=== PATIENT | female | born 1990 | race Two or more races ===

== ENCOUNTER 2020-11-10 21:48 | Emergency (ER) | payer MEDICAID ==
[~2020-11-10] VITALS: Ht 165.1 cm; Wt 110.0 kg
--- NOTE | 2020-11-10 22:06 | PHYS DOC ---
General Adult HPI: HPI: ".. I having some contractions.. I feel like I want to push... I am 36 weeks. .. this is my 3rd ... the lst one was C section,... the second was twins and vaginal.. I ve been following at [facility] .. Dr. Posada... I was dilated to 1 cm earlier in the week.. my water has not broken..no blood yet.. but I am have contractions about every 5 min..." Patient is a 30 year old female who presents with contractions and 36 week . Pt. patient's first was a . Patient second was twins with vaginal delivery. Patient is following walk with at [facility] with this . Patient patient states she has been having contractions every 3 to 5 minutes.. Patient feels like she must push. Patient denies any bloody show. Patient denies any breakage of water. Patient denies any trauma. No recent travel. No history of fever or chills. No history of STDs. Patient states follow-up ultrasounds have showed no abnormality at [facility]. Patient exam currently shows no bleeding or breakage of water. Digital exam showed dilation to 2 cm. Not completely effaced. Forwardly earlier in the week she had dilated to 1 cm. Patient requesting transfer to [facility] if possible. Discussed patient's presentation, testing and treatment plan with Chidi Ferreria who is on-call advised to have patient come to [facility] OB Triage area. Patient recently evaluated at our facility on October 17 for pilonidal cyst/abscess. At that time she was discharged on clindamycin 300 mg 4 times a day and Percocet. Patient later changed to Keflex and Bactrim because of nausea with the clindamycin.. . No history of recent travel outside [facility]. No specific ill contacts. No history of STDs. Review of Systems: Review of Systems: Constitutional: Denies fever or chills Eyes: Denies change in visual acuity HENT: Denies nasal congestion or sore throat Respiratory: Denies cough or shortness of breath Cardiovascular: Denies chest pain or edema GI: Complains of abdomen contractions at 36 weeks : Denies dysuria Musculoskeletal: Denies back pain or joint pain Integument: Denies rash Neurologic: Denies headache, focal weakness or sensory changes Endocrine: Denies polyuria or polydipsia Lymphatic: Denies swollen glands Psychiatric: Denies depression or anxiety Family History: Family History: Noncontributory Current Medications: Current Meds: See nursing for home meds Allergies: Allergies: No known drug allergies Physical Exam: PE: Constitutional: moderate acute distress, non-toxic appearance. [] HENT: Normocephalic, atraumatic, bilateral external ears normal, oropharynx moist, no oral exudates, nose normal. [] Eyes: PERRLA, EOMI, conjunctiva normal, no discharge. [] Neck: Normal range of motion, no tenderness, supple, no stridor. [] Cardiovascular: Tachycardia heart rate regular rhythm, no murmur [] Lungs & Thorax: Bilateral breath sounds clear to auscultation [] breath sounds equal apex. Abdomen: Bowel sounds normal, soft, no tenderness, no masses, no pulsatile masses. Gravid. heart rate 150s. Movement. Exam with sterile glove, Cervix had dilated to approximately 2 cm. Not completely effaced. No bleed. No breakage of water. Cephalic presentation. Skin: Warm, dry, no erythema, no rash. [] Back: No tenderness, no CVA tenderness. [] Extremities: No tenderness, no cyanosis, no clubbing, ROM intact, no edema. [] Neurologic: Alert and oriented X 3, normal motor function, normal sensory function, no focal deficits noted. [] DTRs +2 patella and brachial. Psychologic: Affect anxious, judgement normal, mood normal. [] EKG: EKG: [] Radiology/Procedures: Radiology/Procedures: [] Heart Score: Risk Factors: Risk Factors: DM, Current or recent (<one month) smoker, HTN, HLP, family history of CAD, obesity. Risk Scores: Score 0 - 3: 2.5% MACE over next 6 weeks - Discharge Home Score 4 - 6: 20.3% MACE over next 6 weeks - Admit for Clinical Observation Score 7 - 10: 72.7% MACE over next 6 weeks - Early Invasive Strategies Course & Med Decision Making: Course & Med Decision Making Pertinent Labs and Imaging studies reviewed. (See chart for details) Discussed presentation, testing and treatment plan with Chidi Ferreira at [facility].- Advised no need for labs currently at our facility but have patient transferred to [facility]. Advised they would do labs after her arrival. Discussed risks of transfer and possibility of delivery in route to [facility]. Patient however request to be transferred to [facility] Impression. 1. Abdomen contractions at 36 weeks. 2. Possible premature labor [] Dragon Disclaimer: Dragon Disclaimer: This electronic medical record was generated, in whole or in part, using a voice recognition dictation system. Dragon Disclaimer This chart was dictated in whole or in part using Voice Recognition software in a busy, high-work load, and often noisy Emergency Department environment. It may contain unintended and wholly unrecognized errors or omissions. Dragon Disclaimer This chart was dictated in whole or in part using Voice Recognition software in a busy, high-work load, and often noisy Emergency Department environment. It may contain unintended and wholly unrecognized errors or omissions. Dragon Disclaimer This chart was dictated in whole or in part using Voice Recognition software in a busy, high-work load, and often noisy Emergency Department environment. It may contain unintended and wholly unrecognized errors or omissions. Dragon Disclaimer This chart was dictated in whole or in part using Voice Recognition software in a busy, high-work load, and often noisy Emergency Department environment. It may contain unintended and wholly unrecognized errors or omissions. PAIGE MELÉNDEZ MD Nov 10, 2020 22:06
[2020-11-10 22:30] VITALS: BP 131/64
[2020-11-10] MEDS ORDERED: IV RINGERS SOLUTION,LACTATED 1,000 ML IV ONE (22:30)
[2020-11-10] MEDS: IV RINGERS SOLUTION,LACTATED 1,000 ML IV SCH (22:45)
[2020-11-11 04:32] LABS: CALCIUM 9.3 mg/dL (8.5-10.1); CREATININE 0.7 mg/dL (0.6-1.0); GFR 99.6; POTASSIUM 3.6 mmol/L (3.5-5.1)
[2020-11-11 04:38] LABS: ALBUMIN 2.9 g/dL (3.4-5.0); DIRECT BILIRUBIN 0.1 mg/dL (0.0-0.2); TOTAL BILIRUBIN 0.2 mg/dL (0.2-1.0); TOTAL PROTEIN 7.6 g/dL (6.4-8.2)
[2020-11-11 04:46] LABS: BASO # 0.1 x10^3/uL (0.0-0.2); BASO % 0 % (0-3); EOS # 0.2 x10^3/uL (0.0-0.7); EOS % 2 % (0-3); HEMOGLOBIN 11.2 g/dL (12.0-15.5); LYMPH % 32 % (24-48); MEAN CORPUSCULAR HEMOGLOBIN 28 pg (25-35); MEAN CORPUSCULAR HGB CONC 32 g/dL (31-37); MEAN CORPUSCULAR VOLUME 86 fL (79-100); MONO # 0.8 x10^3/uL (0.0-1.1); MONO % 6 % (0-9); NEUT # 7.6 x10^3uL (1.8-7.7); NEUT % 60 % (31-73); PLATELET COUNT 142 x10^3/uL (140-400); RED BLOOD COUNT 4.06 x10^6/uL (3.50-5.40); RED CELL DISTRIBUTION WIDTH 13.9 % (11.5-14.5); WHITE BLOOD COUNT 12.7 x10^3/uL (4.0-11.0)
== END 2020-11-10 22:45 | disposition short-term general hospital (02) ==
LOC: ER 21:48
DX: O62.9 Abnormality of forces of labor, unspecified (principal); Z3A.36 36 weeks gestation of pregnancy
CPT/HCPCS: 36415; 80048; 80076; 84484; 84702; 85025; 86900; 86901; 99285; J7120

== ENCOUNTER 2021-07-26 16:42 | Emergency (ER) | payer MEDICAID ==
[2021-07-26] MEDS ORDERED: IBUPROFEN 600 MG TABLET. PO ONE ×2 (17:40→17:45)
--- NOTE | 2021-07-26 17:43 | PHYS DOC ---
Past History Past Medical History: Asthma (MARKO WRIGHT APRN) Past Surgical History: , Other Additional Past Surgical Histo: dislocated hip age 6 (MARKO WRIGHT APRN) Alcohol Use: None (MARKO WRIGHT APRN) Adult General Chief Complaint Chief Complaint: LOWEREXTREMITY INJURY HPI HPI Patient is a 31-year-old female patient states she was walking until today, when she stepped into a hole, and fell forward. States she twisted her ankle inwards, since that time she has had some pain in her left ankle and her left lower leg. She has not taken any medications for this. States she has been able to walk however she has had some discomfort. Denies discomfort in knee, back, hip denies additional complaints. Denies any paresthesias (MARKO WRIGHT APRN) Review of Systems Review of Systems Constitutional: Denies fever or chills [] Musculoskeletal: Denies back pain or joint pain [] complains of discomfort to left ankle, left lower leg Integument: Denies rash or skin lesions [] denies abrasions Neurologic: Denies headache, focal weakness or sensory changes [] denies paresthesias Endocrine: Denies polyuria or polydipsia [] All other systems were reviewed and found to be within normal limits, except as documented in this note. (MARKO WRIGHT APRN) Allergies Allergies Allergies Coded Allergies Type Severity Reaction Last Updated Verified Unable to Assess 11/11/20 No (MRAKO WRIGHT APRN) Physical Exam Physical Exam Constitutional: Well developed, well nourished, no acute distress, non-toxic appearance. [] Skin: Warm, dry, no erythema, no rash. [] Back: No tenderness, no CVA tenderness. [] Extremities: no cyanosis, no clubbing, ROM intact, no edema. [] Tenderness over left lateral malleolus no bruising, no swelling noted. Full range of motion to ankle. Able to move toes. Full range of motion to knee. Neurologic: Alert and oriented X 3, normal motor function, normal sensory function, no focal deficits noted. [] Psychologic: Affect normal, judgement normal, mood normal. [] (MARKO WRIGHT APRN) EKG EKG [] (MARKO WRIGHT APRN) Radiology/Procedures Radiology/Procedures Examination: 2 views of the left tibia and fibula, 3 views of the left ankle HISTORY: History of fall, pain COMPARISON: None available FINDINGS: The alignment of the tibia and fibula grossly appears unremarkable. The alignment of the ankle mortise grossly appears unremarkable. There is a 4 mm hypodensity identified in the medial talar dome likely small osteochondral defect. IMPRESSION: 1. 4 mm osteochondral defect identified in the medial talar dome. 2. No acute osseous findings. Electronically signed by: Alan Rosenberg MD (07/26/2021 6:16 PM) [id number] [] (MARKO WRIGHT APRN) Heart Score C/O Chest Pain: N/A Risk Factors: Risk Factors: DM, Current or recent (<one month) smoker, HTN, HLP, family histo ry of CAD, obesity. Risk Scores: Risk Factors: DM, Current or recent (<one month) smoker, HTN, HLP, family history of CAD, obesity. (MARKO WRIGHT APRN) Course & Med Decision Making Course & Med Decision Making Pertinent Labs and Imaging studies reviewed. (See chart for details) [] With history of fall, will image ankle with malleoli tenderness. Will evaluate for tib-fib as well with injury occurring from falling to hold with patient landing on the midpoint of her tibia. Considerations include fracture, ankle sprain, ankle strain, hyperextension injury. Will provide ibuprofen at this time History of noting osteochondral defect to talus, will place patient in a short leg splint, crutches. Patient to follow-up with orthopedic clinic. Patient agreeable to this plan, no further questions or concerns. Discussed Tylenol/ ibuprofen as needed for discomfort. Patient with full range of motion, sensation intact, brisk cap refill remains (MARKO WRIGHT APRN) Dragon Disclaimer Dragon Disclaimer This electronic medical record was generated, in whole or in part, using a voice recognition dictation system. (MARKO WRIGHT APRN) Attending Co-Sign The patient was seen and interviewed as well as examined at the bedside. The chart was reviewed. The case was discussed. Agree with the plan of care. (HOSEA ALBERTS DO) Departure Departure: Impression: Primary Impression: Talar dome fracture Disposition: HOME / SELF CARE / HOMELESS Condition: GOOD Referrals: PCP,NO (PCP) DANIELLA RODAS DPM Patient Instructions: Ankle Fracture Additional Instructions: As discussed, take Tylenol or ibuprofen as needed for discomfort. Apply ice to your ankle from the swelling and discomfort. Use your crutches when you are up moving around as much as possible. Try to keep the splint clean and dry. Follow-up in the orthopedic clinic next week, give them a call tomorrow to try to follow-up with them early next week. The orthopedic clinic at [place] may be able to manage your injury. You can follow up with Dr Rodas at [facility] in this medical building [phone] If they are unable to manage your care, follow up with the [facility] at [phone] Problem Qualifiers Primary Impression: Talar dome fracture Encounter type: initial encounter Fracture type: closed Fracture alignment: nondisplaced Laterality: left Qualified Codes: S92.145A - Nondisplaced dome fracture of left talus, initial encounter for closed fracture MARKO WRIGHT APRN Jul 26, 2021 17:43 OHSEA ALBERTS DO Jul 27, 2021 19:01
--- NOTE | 2021-07-26 18:19 | RAD ---
Examination: 2 views of the left tibia and fibula, 3 views of the left ankle HISTORY: History of fall, pain COMPARISON: None available FINDINGS: The alignment of the tibia and fibula grossly appears unremarkable. The alignment of the ankle mortis e grossly appears unremarkable. There is a 4 mm hypodensity identified in the medial talar dome likel y small osteochondral defect. IMPRESSION: 1. 4 mm osteochondral defect identified in the medial talar dome. 2. No acute osseous findings. Electronically signed by: Alan Rosenberg MD (07/26/2021 6:16 PM) [id number]
== END 2021-07-26 18:53 | disposition home or self-care (01) ==
LOC: ER 16:42
DX: S92.142A Displaced dome fracture of left talus, initial encounter for closed fracture (principal); J45.909 Unspecified asthma, uncomplicated; X50.1XXA Overexertion from prolonged static or awkward postures, initial encounter; Y93.89 Activity, other specified; Y92.89 Other specified places as the place of occurrence of the external cause; Y99.8 Other external cause status
CPT/HCPCS: 73590; 73610; 99284-25

== ENCOUNTER 2021-12-09 12:02 | Emergency (ER) | payer MEDICAID ==
[~2021-12-09] VITALS: Ht 165.1 cm; Wt 90.9 kg
--- NOTE | 2021-12-09 15:22 | PHYS DOC ---
Past History Past Medical History: Asthma Past Surgical History: , Other Additional Past Surgical Histo: dislocated hip age 6 Alcohol Use: None Adult General Chief Complaint Chief Complaint: FOOT INJURY PAIN HPI HPI Patient is a 31-year-old female patient presented to the ED today complaining of mild intermittent pain to the right foot specifically toes, symptoms began today after she fell going down some steps. She states her toes hyperextended during the fall. Patient denies any loss of consciousness. Denies hitting her head on the ground. Denies any neck, mid or low back pain. Reports most of the pain is on weightbearing. Describes the pain as sharp and intermittent. Review of Systems Review of Systems Constitutional: Denies fever or chills [] Musculoskeletal: Reports right toe pain Integument: Denies rash or skin lesions [] Neurologic: Denies headache, focal weakness or sensory changes [] All other systems were reviewed and found to be within normal limits, except as documented in this note. Allergies Allergies Allergies Coded Allergies Type Severity Reaction Last Updated Verified clindamycin Allergy Unknown 12/09/21 Yes sulfamethoxazole Allergy Unknown 12/09/21 Yes trimethoprim Allergy Unknown 12/09/21 Yes Physical Exam Physical Exam Constitutional: Well developed, well nourished, no acute distress, non-toxic appearance. [] Skin: Warm, dry, no erythema, no rash. [] Back: No tenderness, no CVA tenderness. [] Extremities: Right foot with no obvious deformity, soft tissue swelling noted over the right toes. Tenderness diffusely over the top of the right toes. Full range of motion to the right foot, limited range of motion to the right toes. No navicular bone tenderness, no tenderness on the base of the fifth metatarsal of the right foot. +2 right pedal pulse. Cap refill less than 2 seconds all 5 toes. Neurologic: Alert and oriented X 3, normal motor function, normal sensory function, no focal deficits noted. [] Psychologic: Affect normal, judgement normal, mood normal. [] EKG EKG [] Radiology/Procedures Radiology/Procedures []PROCEDURE: FOOT RIGHT 3V XR FOOT_RIGHT 3 VIEWS Clinical indications: Reason: FELL DOWN STAIRS, DIGITS 2 THRU 5 HURT AND CAN'T BEND / Spl. Instructions: / History: Findings: No acute fracture or dislocation or osteolytic process is evident. IMPRESSION: No acute osseous abnormality is evident. Electronically signed by: Clarence Gomez MD (12/09/2021 3:21 PM) [id number] DICTATED AND SIGNED BY: CLARENCE GOMEZ MD DATE: 12/09/21 1520 CC: DARBY LUKE DO; BEATRIZ HENRY APRN; PCP,NO ~MTH0 0 Heart Score C/O Chest Pain: N/A Risk Factors: Risk Factors: DM, Current or recent (<one month) smoker, HTN, HLP, family history of CAD, obesity. Risk Scores: Risk Factors: DM, Current or recent (<one month) smoker, HTN, HLP, family history of CAD, obesity. Course & Med Decision Making Course & Med Decision Making Pertinent Labs and Imaging studies reviewed. (See chart for details) This is a 31-year-old female patient presented to the ED today complaining of right toes pain that began after she fell. Right foot x-rays interpreted by radiologist are negative for any acute findings. Patient states she already has an orthopedic boot at home that was given to her when she had fractured her left leg. I encouraged her to use orthopedic shoe for the next 1 to 2 weeks. I encouraged her to ice and elevate the extremity. Follow-up with orthopedic doctor in 1 week. OTC pain relievers Jeane Disclaimer Jeane Disclaimer This electronic medical record was generated, in whole or in part, using a voice recognition dictation system. Departure Departure: Impression: Primary Impression: Right foot sprain Disposition: HOME / SELF CARE / HOMELESS Condition: STABLE Referrals: PCP,NO (PCP) follow up in one week with your orthopedic doctor Patient Instructions: Foot Sprain-Brief Additional Instructions: You are seen for right foot sprain. Your right foot x-rays are negative for any acute findings. Please wear the orthopedic boot you have at home on your right foot. Follow-up with the orthopedic doctor. Try to ice and elevate the extr emity. Take Tylenol or Motrin for pain. Problem Qualifiers Primary Impression: Right foot sprain Encounter type: initial encounter Qualified Codes: S93.601A - Unspecified sprain of right foot, initial encounter BEATRIZ HENRY APRN Dec 09, 2021 15:22
[2021-12-09 16:00] VITALS: BP 126/73
== END 2021-12-09 16:00 | disposition home or self-care (01) ==
LOC: ER 12:02
DX: S93.601A Unspecified sprain of right foot, initial encounter (principal); J45.909 Unspecified asthma, uncomplicated; Z88.1 Allergy status to other antibiotic agents; Z88.2 Allergy status to sulfonamides; W10.8XXA Fall (on) (from) other stairs and steps, initial encounter; Y93.89 Activity, other specified; Y92.89 Other specified places as the place of occurrence of the external cause; Y99.8 Other external cause status
CPT/HCPCS: 73630; 99283